=== PATIENT | female | born 1995 | race Two or more races ===

== ENCOUNTER 2023-09-10 15:02 | Emergency (ER) | payer OTHER ==
[~2023-09-10] VITALS: Ht 147.3 cm; Wt 70.3 kg
[2023-09-10 18:14] LABS: HEMATOCRIT 43.8 % (36.0-45.00); HEMOGLOBIN 15.4 g/dL (12.0-15.00); MEAN CELL VOLUME 83.2 fL (80.00-100.00); MEAN CORPUSCULAR HEMOGLOBIN 29.3 pg (27.00-32.0); MEAN CORPUSCULAR HGB CONC 35.3 g/dl (32.0-36.0); PLATELET COUNT 249 K/uL (150-450); RED BLOOD COUNT 5.27 M/uL (4.00-6.00); RED CELL DISTRIBUTION WIDTH 13.2 % (11.5-14.5)
== END 2023-09-10 19:23 | disposition home or self-care (01) ==
LOC: ER 15:02
PROVIDERS: General Practice
DX: J10.1 Influenza due to other identified influenza virus with other respiratory manifestations (principal); Z20.822 Contact with and (suspected) exposure to COVID-19

== ENCOUNTER 2024-09-22 15:21 | Emergency (ER) | payer OTHER ==
[~2024-09-22] VITALS: Ht 149.9 cm; Wt 70.3 kg
[2024-09-22] MEDS ORDERED: ACETAMINOPHEN 500 MG GEL..CAP PO ONE (19:00)
[2024-09-22 20:21] LABS: HEMATOCRIT 39.9 % (36.0-45.00); MEAN CELL VOLUME 82.4 fL (80.00-100.00); MEAN CORPUSCULAR HEMOGLOBIN 28.9 pg (27.00-32.0); PLATELET COUNT 230 K/uL (150-450); RED BLOOD COUNT 4.84 M/uL (4.00-6.00); RED CELL DISTRIBUTION WIDTH 13.1 % (11.5-14.5)
[2024-09-22] MEDS ORDERED: OSEL75CA PO (22:25)
== END 2024-09-22 22:46 | disposition home or self-care (01) ==
LOC: ER 15:23
PROVIDERS: Preventive Medicine Public Health & General Preventive Medicine
DX: B34.9 Viral infection, unspecified (principal); J10.1 Influenza due to other identified influenza virus with other respiratory manifestations; Z20.822 Contact with and (suspected) exposure to COVID-19